=== PATIENT | female | born 1965 | race Caucasian/White ===

== ENCOUNTER 2020-02-15 14:57 | Emergency (ER) | payer BC ==
[~2020-02-15] VITALS: Ht 160 cm; Wt 72.6 kg
[2020-02-15 15:07] VITALS: BP_SYST 140
[2020-02-15 15:37] LABS: BASOPHILS % (AUTO) 0.6 % (0.0-2.0); EOSINOPHILS # (AUTO) 0.1 K/uL (0.0-0.4); EOSINOPHILS % (AUTO) 2.3 % (0.0-4.0); HEMATOCRIT 39.6 % (36-48); HEMOGLOBIN 12.8 g/dL (12.0-16.0); LYMPHOCYTES # (AUTO) 1.8 K/uL (1.0-5.5); LYMPHOCYTES % (AUTO) 30.4 % (20.5-51.5); MEAN CORPUSCULAR HEMOGLOBIN 26 pg (27-31); MEAN CORPUSCULAR HGB CONC 32 % (32-36); MEAN CORPUSCULAR VOLUME 80 fL (79.0-98.0); MONOCYTES # (AUTO) 0.5 K/uL (0.0-1.0); MONOCYTES % (AUTO) 7.9 % (1.7-9.3); NEUTROPHILS # (AUTO) 3.5 K/uL (1.8-7.7); NEUTROPHILS % (AUTO) 58.8 % (40.0-70.0); PLATELET COUNT (AUTO) 276 K/uL (130-430); RED BLOOD CELL COUNT(AUTO) 4.97 MIL/uL (4.2-6.2); RED CELL DISTRIBUTION WIDTH 14.6 % (9.0-15.0); WHITE BLOOD COUNT (AUTO) 5.9 K/uL (4.8-10.8)
[2020-02-15 15:55] LABS: CALCIUM 8.9 mg/dL (8.4-11.0); CREATININE 0.75 mg/dL (0.55-1.30); POTASSIUM 3.7 mmol/L (3.5-5.1)
[2020-02-15 16:00] LABS: ALBUMIN 3.8 g/dL (3.4-4.8); TOTAL BILIRUBIN 0.1 mg/dL (0.0-1.0)
[2020-02-15 16:06] LABS: BILIRUBIN,URINE NEGATIVE (NEGATIVE); BLOOD, URINE NEGATIVE (NEGATIVE); CLARITY/URINE CLEAR (CLEAR); COLOR,URINE YELLOW (YELLOW); GLUCOSE,URINE NEGATIVE (NEGATIVE); KETONES,URINE TRACE (NEGATIVE); LEUKOCYTE ESTERASE ,URINE NEGATIVE (NEGATIVE); NITRITE, URINE NEGATIVE (NEGATIVE); PROTEIN URINE NEGATIVE (NEGATIVE); UROBILINOGEN,URINE 0.2 (0.2-1.0)
--- NOTE | 2020-02-15 17:14 | NUR ---
ER Dr. Milan at bedside examining patient.
--- NOTE | 2020-02-15 17:14 | NUR ---
Patient to [facility] chair for evaluation. Side rails up.
--- NOTE | 2020-02-15 17:20 | NUR ---
Patient brought in complaining of RUQ abdmoinal pain and right flank pain starting this morning at 10 AM. Pain 7/10. Denies Nausea, Vomiting, Diarrhea. No other complaints/injuries per patient or as noted. Will continue to monitor.
--- NOTE | 2020-02-15 17:24 | NUR ---
patient returned from radiology
[2020-02-15] MEDS ORDERED: MAGNESIUM CITRATE 300 ML ORAL SOLUTION PO ONE (17:30)
--- NOTE | 2020-02-15 17:30 | NUR ---
ER Dr. Milan at bedside discussing results
[2020-02-15 18:32] VITALS: BP_SYST 132
--- NOTE | 2020-02-15 18:32 | NUR ---
Patient given written and verbal discharge instructions and verbalizes understanding. ER MD discussed with patient the results and treatment provided. Patient in stable condition. ID arm band removed. Rx of Milk of Magnesia given. Patient educated on pain management and to follow up with PMD. Pain Scale 0/10 Opportunity for questions provided and answered. Medication side effect fact sheet provided.
== END 2020-02-15 18:32 | disposition home or self-care (01) ==
LOC: SED 14:57
DX: K59.00 Constipation, unspecified (principal)
CPT/HCPCS: 36415; 74018; 76700-TC; 80053; 81000-TC; 81003; 82150-TC; 83690-TC; 85025; 99285

== ENCOUNTER 2020-02-16 16:00 | Inpatient (IN) | payer BC ==
[~2020-02-16] VITALS: Ht 160 cm; Wt 74.9 kg
--- NOTE | 2020-02-16 16:00 | NUR ---
PATIENT TO ER #7 WITH [employer], SAO2, ABP
[2020-02-16 16:12] VITALS: BP_SYST 117
--- NOTE | 2020-02-16 16:12 | NUR ---
Pt came to ER for RUQ abdominal pain, N/V/D. She was seen yesterday for the same issue. Pt reports pain 10/10 at this time. ROCCO, resting in [facility], awaiting .
--- NOTE | 2020-02-16 16:20 | NUR ---
ER at bedside examining patient.
[2020-02-16] MEDS ORDERED: MORPHINE 4 MG/ML INJ. SYRINGE IVP ONE ×2 (16:45→19:00)
[2020-02-16] MEDS ORDERED: ONDANSETRON HCL 4 MG/2 ML VIAL IVP ONE (16:45)
[2020-02-16 17:05] LABS: BASOPHILS % (AUTO) 0.6 % (0.0-2.0); EOSINOPHILS # (AUTO) 0.1 K/uL (0.0-0.4); EOSINOPHILS % (AUTO) 1.2 % (0.0-4.0); HEMATOCRIT 42.6 % (36-48); HEMOGLOBIN 13.6 g/dL (12.0-16.0); LYMPHOCYTES # (AUTO) 1.7 K/uL (1.0-5.5); LYMPHOCYTES % (AUTO) 25.8 % (20.5-51.5); MEAN CORPUSCULAR HEMOGLOBIN 25 pg (27-31); MEAN CORPUSCULAR HGB CONC 32 % (32-36); MEAN CORPUSCULAR VOLUME 80 fL (79.0-98.0); MONOCYTES # (AUTO) 0.4 K/uL (0.0-1.0); MONOCYTES % (AUTO) 6.6 % (1.7-9.3); NEUTROPHILS # (AUTO) 4.4 K/uL (1.8-7.7); NEUTROPHILS % (AUTO) 65.8 % (40.0-70.0); PLATELET COUNT (AUTO) 305 K/uL (130-430); RED BLOOD CELL COUNT(AUTO) 5.36 MIL/uL (4.2-6.2); RED CELL DISTRIBUTION WIDTH 14.7 % (9.0-15.0); WHITE BLOOD COUNT (AUTO) 6.7 K/uL (4.8-10.8)
[2020-02-16] MEDS ORDERED: IOHEXOL 350 mgI/mL, 150 ML INFUS..BTL IV ONE (17:16)
[2020-02-16 17:33] LABS: ANION GAP 6 (5-15); CALCIUM 8.7 mg/dL (8.4-11.0); CHLORIDE 103 mmol/L (98-107); CREATININE 0.71 mg/dL (0.55-1.30); GLUCOSE 97 mg/dL (70-99); POTASSIUM 3.7 mmol/L (3.5-5.1); SODIUM SERUM 138 mmol/L (136-145); UREA NITROGEN, BLOOD 13 mg/dL (8-21)
--- NOTE | 2020-02-16 17:35 | NUR ---
Pt asleep in [facility] at this time VSS
[2020-02-16 17:37] LABS: GFR AFRICAN AMERICAN 111 mL/min (>90)
[2020-02-16 17:41] LABS: ALANINE AMINOTRANSFERASE 39 U/L (12-78); ALBUMIN 4.1 g/dL (3.4-4.8); ASPARTATE AMINOTRANSFERASE 27 U/L (10-37); TOTAL BILIRUBIN 0.3 mg/dL (0.0-1.0)
--- NOTE | 2020-02-16 18:15 | NUR ---
Pt resting, VSS, AO4, no distress noted.
[2020-02-16] MEDS ORDERED: LEVOFLOXACIN 500 MG/D5W 100 ML IV ONE (19:00)
[2020-02-16] MEDS ORDERED: metroNIDAZOLE 500 mg/NS 100 ML IV ONE (19:00)
--- NOTE | 2020-02-16 19:15 | NUR ---
Report recieved from CHARMAINE Dominique.
[2020-02-16] MEDS ORDERED: ACETAMINOPHEN 325 MG TABLET PO PRN (19:45)
[2020-02-16] MEDS ORDERED: PANTOPRAZOLE SODIUM 40 MG/VIAL (PROTONIX) IVP ONE (20:00)
[2020-02-16] MEDS: NACL 0.9% 1,000 ML IV SCH (20:36)
[2020-02-16] MEDS: ONDANSETRON HCL 4 MG/2 ML VIAL IVP PRN (21:05)
--- NOTE | 2020-02-16 21:05 | NUR ---
Pt rates pain 8/10, admit order of Morphine 2mg and Zofran given. Pt tolerated well. Currently resting, symmetric chest rise and fall. No complaints at this time. Will continue to monitor.
[2020-02-16] MEDS: MORPHINE 2 MG/ML INJ. SYRINGE IVP PRN (21:06)
[2020-02-16] MEDS ORDERED: PIPERACILLIN/TAZOBACTAM 3.375 GM/VIAL (ZOSYN) IV ONE (21:56)
[2020-02-16] MEDS: PIPERACILLIN/TAZO 3.375/DEX-IS 50 ML IV SCH (21:56)
--- NOTE | 2020-02-16 23:50 | NUR ---
Pt resting, symmetic chest rise and fall, Denies any pain, or any complaints at this time.
--- NOTE | 2020-02-17 00:30 | NUR ---
End of life care decisions discussed withpatient by CHARMAINE Goss. Opportunity for questions and concerns addressed. Patient's code status is MODIFIED RESUSCITATIVE paperwork completed and placed in chart.
[2020-02-17] MEDS: PIPERACILLIN/TAZO 3.375/DEX-IS 50 ML IV SCH ×3 (00:39→12:15)
[2020-02-17] MEDS ORDERED: PIPERACILLIN/TAZOBACTAM 3.375 GM/VIAL (ZOSYN) IV ONE ×2 (00:40→03:46)
--- NOTE | 2020-02-17 00:45 | NUR ---
Swabbed for MRSA and COVID, sent to lab.
--- NOTE | 2020-02-17 01:00 | NUR ---
Patient will be admitted to care of . Admitted to Medical surgical unit. Will go to room 102b. Belongings list completed. Complete and up to date summary report printed. SBAR report to be given over the phone with opportunity for questions.
[2020-02-17 01:15] VITALS: BP_SYST 130
--- NOTE | 2020-02-17 01:15 | NUR ---
ADMISSION PATIENT IN BED, AWAKE, ALERT, ORIENTED, VITALS STABLE. DENIES PAIN AT THIS TIME. ADMISSION DATA AND ASSESSMENT DONE AND DOCUMENTED. SEE FLOWSHEET. PLAN OF CARE DISCUSSED AND PATIENT VERBALIZED UNDERSTANDING. ORIENTED PATIENT TO HER ROOM, PHONE AND CALL LIGHT. NEEDS ATTENDED TO. SAFETY MEASURES IN PLACED. CALL LIGHT PLACED WITHIN REACH.
[2020-02-17] MEDS: MORPHINE 2 MG/ML INJ. SYRINGE IVP PRN (02:57)
[2020-02-17 03:26] LABS: BILIRUBIN,URINE NEGATIVE (NEGATIVE); BLOOD, URINE NEGATIVE (NEGATIVE); CLARITY/URINE CLEAR (CLEAR); COLOR,URINE YELLOW (YELLOW); GLUCOSE,URINE NEGATIVE (NEGATIVE); KETONES,URINE 1+ (NEGATIVE); LEUKOCYTE ESTERASE ,URINE NEGATIVE (NEGATIVE); NITRITE, URINE NEGATIVE (NEGATIVE); PH,URINE 7.5 (5.0-8.0); PROTEIN URINE NEGATIVE (NEGATIVE); UROBILINOGEN,URINE 0.2 (0.2-1.0)
--- NOTE | 2020-02-17 04:12 | NUR ---
PATIENT RESTING: Patient resting quietly. No acute distress noted. Vital signs within normal range.
[2020-02-17] MEDS: NACL 0.9% 1,000 ML IV SCH ×2 (05:41→16:00)
[2020-02-17 06:40] LABS: ALBUMIN 3.3 g/dL (3.4-4.8); CREATININE 0.86 mg/dL (0.55-1.30); POTASSIUM 3.9 mmol/L (3.5-5.1)
[2020-02-17 06:44] LABS: BASOPHILS % (AUTO) 0.3 % (0.0-2.0); EOSINOPHILS # (AUTO) 0.1 K/uL (0.0-0.4); EOSINOPHILS % (AUTO) 0.8 % (0.0-4.0); HEMATOCRIT 37.4 % (36-48); HEMOGLOBIN 11.8 g/dL (12.0-16.0); LYMPHOCYTES # (AUTO) 1.5 K/uL (1.0-5.5); LYMPHOCYTES % (AUTO) 21.5 % (20.5-51.5); MEAN CORPUSCULAR HEMOGLOBIN 25 pg (27-31); MEAN CORPUSCULAR HGB CONC 31 % (32-36); MEAN CORPUSCULAR VOLUME 80 fL (79.0-98.0); MONOCYTES # (AUTO) 0.5 K/uL (0.0-1.0); MONOCYTES % (AUTO) 7.7 % (1.7-9.3); NEUTROPHILS # (AUTO) 4.7 K/uL (1.8-7.7); NEUTROPHILS % (AUTO) 69.7 % (40.0-70.0); PLATELET COUNT (AUTO) 251 K/uL (130-430); RED CELL DISTRIBUTION WIDTH 14.3 % (9.0-15.0); WHITE BLOOD COUNT (AUTO) 6.8 K/uL (4.8-10.8)
--- NOTE | 2020-02-17 06:56 | NUR ---
CLOSING NOTES PATIENT RESTING IN BED AT THIS TIME, VITALS STABLE, DENIES ABDOMINAL PAIN AT THIS TIME. ALL NEEDS ATTENDED TO. CHG BATH GIVEN. SAFETY MEASURES MAINTAINED. CALL LIGHT PLACED WITHIN REACH.
[2020-02-17 07:00] VITALS: BP_SYST 146
--- NOTE | 2020-02-17 07:15 | NUR ---
OPENING NOTES PT AWAKE, ALERT, AND ORIENTED. CHG BATH ALREADY GIVEN FOR SURGERY. NONLABORED BREATHING NOTED ON ROOM AIR, O2 AT 97%. PT DENIES PAIN AND SOB AT THIS TIME. IV LINE INTACT AND PATENT, NO SIGNS OF INFILTRATION NOTED. NO ACUTE DISTRESS NOTED ALL NEEDS MET. CALL LIGHT IN REACH. FALL AND ASPIRATION PRECAUTIONS IN PLACE. CONTINUE TO MONITOR.
[2020-02-17 07:17] LABS: PROTHROMBIN TIME 10.1 SECS (9.5-12.5)
--- NOTE | 2020-02-17 07:30 | NUR ---
PT TAKEN OFF FLOOR FOR SURGERY.
[2020-02-17 07:35] LABS: HCG,QUAL RESULT NEGATIVE (NEGATIVE)
[2020-02-17 07:41] LABS: TOTAL BILIRUBIN 0.5 mg/dL (0.0-1.0)
[2020-02-17] MEDS ORDERED: fentaNYL CITRATE/PF 100 MCG/2 ML AMP IVP PRN ×2 (08:15)
[2020-02-17] MEDS ORDERED: ONDANSETRON HCL 4 MG/2 ML VIAL IVP PRN (08:15)
[2020-02-17] MEDS ORDERED: PANTOPRAZOLE SODIUM 40 MG/VIAL (PROTONIX) IVP SCH (09:00)
[2020-02-17] MEDS ORDERED: MORPHINE 2 MG/ML INJ. SYRINGE IVP PRN (09:15)
[2020-02-17] MEDS ORDERED: HYDROcodone/ACETAMIN 5-325 MG TAB (NORCO/ VICODIN) PO PRN (09:15)
[2020-02-17] MEDS ORDERED: ONDANSETRON HCL 4 MG/2 ML VIAL ONE (09:50)
[2020-02-17] MEDS ORDERED: fentaNYL CITRATE/PF 100 MCG/2 ML AMP ONE (09:51)
--- NOTE | 2020-02-17 10:23 | NUR ---
PT BACK ON FLOOR, RETURNED FROM SURGERY. VITAL SIGNS STABLE. 3 SURGICAL INCISION SITES WITH DERMABOND NOTED. NO ACTIVE BLEEDING NOTED. PT C/O PAIN, ADMINISTERED PAIN MEDS ORDERED PER MD, EDUCATION GIVEN, PT VERBALIZED UNDERSTANDING. CONTINUE TO MONITOR.
[2020-02-17] MEDS: ONDANSETRON HCL 4 MG/2 ML VIAL IVP PRN (12:14)
--- NOTE | 2020-02-17 12:21 | NUR ---
PT STATED FEELING NAUSEOUS AND REQUESTED FOR NAUSEA MEDICATION BEFORE EATING. ADMINISTERED ZOFRAN AND ROUTINE MEDS ORDERED PER MD, EDUCATION GIVEN, TOLERATED WELL. PT EATING LUNCH. NO ACUTE DISTRESS NOTED. ALL NEEDS MET. CALL LIGHT IN REACH. CONTINUE TO MONITOR.
--- NOTE | 2020-02-17 14:34 | NUR ---
PT STATED THAT SHE IS READY TO GO HOME, DENIES PAIN, NAUSEA, AND VOMITING AT THIS TIME. PT IS AMBULATING TO THE BATHROOM AND TOLERATING DIET. OK WITH DR. RICHARDSON FOR D/C. WILL PAGE DR. DARDEN. Addendum: 02/17/20 at 1930 by Krystyna Le RN PT ALSO STATED BEING ABLE TO PASS GAS
[2020-02-17 16:00] VITALS: BP_SYST 115
--- NOTE | 2020-02-17 16:07 | NUR ---
ATTENDING MD DR DARDEN WAS CALLED, RE: DISCHARGE ORDER TO HOME. SPOKE TO DILAN.
[2020-02-17] MEDS ORDERED: HYDR-4272 PO (16:12)
[2020-02-17 16:47] VITALS: BP_SYST 123
[2020-02-17 16:57] VITALS: BP_SYST 123
== END 2020-02-17 17:20 | disposition home or self-care (01) | DRG 419 ==
LOC: SED 16:00 → EEVIPCON 19:17 → SMU 19:17
PROVIDERS: ADMIT Internal Medicine; ATTEND Internal Medicine
PROC: 0FT44ZZ Resection of Gallbladder, Percutaneous Endoscopic Approach (ICD-10-PCS; principal; 2020-02-17 07:30)
DX: K81.0 Acute cholecystitis (principal); Z20.828 Contact with and (suspected) exposure to other viral communicable diseases
CPT/HCPCS: 36415; 71275; 74175; 80053; 81003; 82550-TC; 84484; 84703; 85025; 85379; 85610-TC; 86886; 86900; 86901; 87040-TC; 87081; 88304; 96365; 96367; 96375; 96376; 99285; C9113; J1956; J2270; J2405; J2543; J3010; J3490; Q9967; U0003-CS